=== PATIENT | female | born 1985 | race Caucasian/White ===

== ENCOUNTER 2017-11-02 16:31 | Emergency (ER) | payer OTHER ==
[~2017-11-02] VITALS: Ht 165.1 cm; Wt 84.1 kg
[2017-11-02] MEDS ORDERED: SING10TA32 PO (16:43)
[2017-11-02] MEDS ORDERED: FLON1SPR (16:43)
[2017-11-02] MEDS ORDERED: ALLE180T33 PO (16:43)
[2017-11-02] MEDS ORDERED: TRINTAB3 PO (16:43)
[2017-11-02] MEDS ORDERED: ADV100INH INH (16:43)
[2017-11-02] MEDS ORDERED: LEXA1TAB PO (16:43)
[2017-11-02] MEDS ORDERED: IBUPROFEN 600 MG TAB PO ONE (17:30)
[2017-11-02] MEDS ORDERED: ROBA500T PO (18:32)
[2017-11-02] MEDS ORDERED: NAPR500T3 PO (18:32)
[2017-11-02 18:40] VITALS: BP 140/68
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
== END 2017-11-02 18:42 | disposition home or self-care (01) ==
LOC: M ED 18:02
DX: M62.838 Other muscle spasm (principal); M54.5 Low back pain; V48.0XXA Car driver injured in noncollision transport accident in nontraffic accident, initial encounter; Y92.9 Unspecified place or not applicable; Y93.9 Activity, unspecified; Y99.9 Unspecified external cause status; J45.909 Unspecified asthma, uncomplicated; Z79.899 Other long term (current) drug therapy; Z88.1 Allergy status to other antibiotic agents; Z88.2 Allergy status to sulfonamides